=== PATIENT | female | born 1990 | race African-American/Black ===

== ENCOUNTER 2016-11-18 15:07 | Emergency (ER) | payer OTHER ==
--- NOTE | ~2016-11-18 | CT71 ---
[facility] A Service of [facility] RADIOLOGY TEXT RESULTS PATIENT: ROSETTA WILLSON LOCATION: [place] : [birth year] UNIT #: [id number] AGE: [address]: Gina Sebastian MD SEX: F ORDER DR: [id number] [address] [place], [place] [address] [id number] MR#: [id number] Acc #: [id number] NAME: ROSETTA WILLSON : 1990 SEX: F STUDY DATE/TIME: 11/18/2016 16:52 UNIT: [facility] ROOM: STUDY DESCRIPTION: CT Head Wo Contrast Attending Physician: Gina Sebastian M.D. Ordering Physician: Gina Sebastian M.D. Primary Care Physician: [facility] MEDICAL IMAGING REPORT This report is preliminary unless electronic signature is present EXAM CT of the head without contrast. INDICATION Headaches, dizziness and weakness today. Hypertension. TECHNIQUE CT of the head was performed without contrast. This CT exam was performed with one or more of the following radiation dose reduction techniques: automatic exposure control, adjustment of mA and/or kV according to patient size, and iterative reconstruction. COMPARISON No comparisons are available. FINDINGS There is no evidence of intracranial hemorrhage. No evidence of acute cortical based infarction, focal mass lesion or hydrocephalus. The included orbits and paranasal sinuses are unremarkable. Bone windows are unremarkable. IMPRESSION Negative noncontrast head CT. Dictated by... Vikash Martinez M.D. THIS IS AN ELECTRONICALLY VERIFIED REPORT Vikash Martinez M.D. at 11/20/2016 3:25 PM TERESA/jasmyne TD: 11/18/2016 23:34 [facility] A Service of [facility] RADIOLOGY TEXT RESULTS PATIENT: ROSETTA WILLSON LOCATION: [place] : [birth year] UNIT #: [id number] AGE: [address]: Gina Sebastian MD SEX: F ORDER DR: JOB #: [id number] MEDICAL IMAGING REPORT Page 1 of 1 COPY
== END 2016-11-18 17:30 | disposition home or self-care (01) ==
LOC: CED 15:07
DX: Z76.0 Encounter for issue of repeat prescription (principal); I10 Essential (primary) hypertension; K21.9 Gastro-esophageal reflux disease without esophagitis
CPT/HCPCS: 70450; 84703; 99283